=== PATIENT | female | born 1950 | race Caucasian/White ===

== ENCOUNTER → 2018-01-13 | Day surgery (SDC) | payer OTHER ==
[~2018-01-13] MED LIST: ATIVAN1 M1 PO; LOSARTAN-HCTZ1 EAC1 PO; NORVASC10 MG PO; XANAX1 MG PO; [UNRECOGNIZED DRUG - OTHER]
== END | disposition home or self-care (01) ==
LOC: ADM 12-24 12:15 → CIR.AMB 06:24
DX: H71.21 Cholesteatoma of mastoid, right ear (principal); H74.11 Adhesive right middle ear disease